=== PATIENT | male | born 1985 | race Caucasian/White ===

== ENCOUNTER 2017-05-07 13:11 | Emergency (ER) | payer OTHER ==
--- NOTE | 2017-05-07 13:16 | EDM.PDOC ---
ED HPI GENERAL MEDICAL PROBLEM - General Chief Complaint: Lower Extremity Injury/Pain Stated Complaint: Left foot pain Time Seen by Provider: 05/07/17 13:16 Source of Information: Reports: Patient, Old Records ([facility] chart/EMR) History Limitations: Reports: No Limitations - History of Present Illness INITIAL COMMENTS - FREE TEXT/NARRATIVE: Patient was brought to the emergency room via transport vehicle from [facility] for evaluation of a Workmen's Compensation injury, which occurred at about 10:30 a.m. this morning. He was able to continue to weight-bear on his left foot with some discomfort and did continue his normal work duties, however progressive 8/ 10 dorsal left foot pain since his injury. The patient had a 300 pound piece of metal slide onto his left foot with no history of foreign body, paresthesias, neurological deficits, or other complaints or injuries. He did take 400 mg of ibuprofen and apply ice packs at 11 AM with only minimal improvement of his symptoms. He has not injured this foot in the past. The patient denies any chest pain/pressure, heart flutter, dizziness, orthostasis, orthopnea, diaphoresis, paresthesias, recent decreased exercise tolerance, or any other anginal-type symptoms. No recent history of abdominal pain, heartburn, nausea, diarrhea, melena, gross hematochezia, or any food intolerance, including fatty foods, etc.. The patient also denies any recent fever, cough, wheezing, dyspnea , etc.. Onset: Today, Sudden Onset Date: 05/07/17 Onset Time: 10:30 Duration: Constant, Getting Worse Location: Reports: Lower Extremity, Left. Denies: Head, Neck, Chest, Abdomen, Back, Upper Extremity, Left, Upper Extremity, Right, Lower Extremity, Right, Radiates to Quality: Reports: Ache, Sharp, Stabbing Severity: Moderate Improves with: Reports: Rest Worsens with: Reports: Movement Context: Reports: Trauma (As above) Associated Symptoms: Denies: Confusion, Chest Pain, Cough, Diaphoresis, Fever/ Chills, Headaches, Loss of Appetite, Malaise, Nausea/Vomiting, Shortness of Breath, Syncope, Weakness Treatments DRAFTER TOPOGRAPHICAL: Reports: Cold Therapy, NSAIDS Left Feet Pain Score (Numeric/FACES): 8 - Related Data Allergies Allergy/AdvReac Type Severity Reaction Status Date / Time No Known Allergies Allergy Verified 08/13/14 16:55 Past Medical History Musculoskeletal History: Reports: Arthritis, Back Pain, Chronic, Fracture, Neck Pain, Chronic, Osteoarthritis, Other (See Below) Other Musculoskeletal History: Proximal phalangeal fracture of digit #5 of the his right hand on 04/29/95 Psychiatric History: Reports: Anxiety, Depression Hematologic History: Reports: None. Denies: Anemia, Blood Transfusion(s) Social & Family History - Tobacco Use Smoking Status *Q: Former Smoker Tobacco Use Within Last Twelve Months: Smokeless Tobacco Years of Tobacco use: 15 Packs/Tins Daily: 0.5 (The patient did chew tobacco about one half can per day between ages 17 and 32 and stopped using tobacco on 03/30/2017) Used Tobacco, but Quit: Yes Month Tobacco Last Used: As above - Living Situation & Occupation Occupation: Employed ([employer]) Review of Systems - Review of Systems Review Of Systems: ROS reveals no pertinent complaints other than HPI. ED EXAM, GENERAL - Physical Exam Exam: See Below Exam Limited By: No Limitations General Appearance: Alert, WD/WN, No Apparent Distress Head: Atraumatic, Normocephalic Neck: Normal Inspection, Supple, Non-Tender, Full Range of Motion. No: Lymphadenopathy (L), Lymphadenopathy (R), Thyromegaly Respiratory/Chest: No Respiratory Distress, Lungs Clear, Normal Breath Sounds, No Accessory Muscle Use, Chest Non-Tender. No: Pleural Rub, Retractions Cardiovascular: Normal Peripheral Pulses, Regular Rate, Rhythm, No Edema, No Gallop, No JVD, No Murmur, No Rub. No: Gallop/S3, Gallop/S4, Friction Rub Peripheral Pulses: 2+: Radial (L), Radial (R), Dorsalis Pedis (L), Dorsalis Pedis (R) GI/Abdominal: Normal Bowel Sounds, Soft, Non-Tender, No Organomegaly, No Distention, No Abnormal Bruit, No Mass, Pelvis Stable. No: Guarding (Male) Exam: Deferred Rectal (Males) Exam: Deferred Back Exam: Normal Inspection, Full Range of Motion. No: CVA Tenderness (L), CVA Tenderness (R), Muscle Spasm Extremities: Normal Range of Motion, No Pedal Edema, Normal Capillary Refill, Leg Pain (Mild to moderate palpation pain over the mid dorsal aspect of the left foot with no ecchymosis, crepitation, deformity, significant swelling, etc. ). No: Joint Swelling, Cynthia's Sign Neurological: Alert, Oriented, CN II-XII Intact, Normal Cognition, No Motor/ Sensory Deficits. No: Normal Gait (Mild discomfort in the left foot with weightbearing and ambulation), Abnormal Gait Psychiatric: Normal Affect, Normal Mood Skin Exam: Warm, Dry, Intact, Normal Color, No Rash. No: Ecchymosis, Wound/ Incision Lymphatic: No Adenopathy Course - Vital Signs Last Recorded V/S: Last Vital Signs Temp 36.8 C 05/07/17 13:59 Pulse 85 05/07/17 13:59 Resp 16 05/07/17 13:59 BP 118/61 05/07/17 13:59 Pulse Ox 99 05/07/17 13:59 Vital Signs - 24 hr 05/07/17 13:59 Temperature [ 36.8 C Temporal] Pulse, 85 Peripheral [ Right Pulse Oximetry] Respiratory 16 Rate Blood Pressure 118/61 [Right Upper Arm] O2 Sat by Pulse 99 Oximetry - Orders/Labs/Meds Orders: Active Orders 24 hr Category Date Time Status Foot Comp Min 3V Lt [CR] Stat Exams 05/07/17 13:17 Taken Obtain Past Medical Record [OM.PC] Routine Oth 05/07/17 13:17 Active Labs: None Meds: None - Radiology Interpretation Free Text/Narrative:: X-rays of the foot, complete, shows no evidence of fracture, dislocation, foreign body, etc. Departure - Departure Time of Disposition: 14:43 Disposition: Home, Self-Care 01 Clinical Impression: Mixed anxiety depressive disorder Contusion Qualifiers: Encounter type: initial encounter Contusion area: foot Laterality: left Qualified Code(s): S90.32XA - Contusion of left foot, initial encounter Osteoarthritis Qualifiers: Osteoarthritis location: multiple joints Osteoarthritis type: primary Qualified Code(s): M15.0 - Primary generalized (osteo)arthritis - Discharge Information Instructions: Crutch Use, Adult, [id number], Contusion, [id number] Referrals: Nelson Donato NP [Primary Care Provider] - Forms: ED Department Discharge Additional Instructions: 1. Follow-up with your regular provider in one week for reevaluation and reassessment of your previous work restrictions. Consider possible repeat of left foot x-rays at that time depending on your symptoms 2. Work excuse- See Form 3. Weight bearing on the left foot as tolerated with Ayo wrap and crutches to be used majority of the time as discussed 4. BenGay or equivalent, heating pad, and/or ice packs as directed. 5. Congratulations about stopping smoking 6. Call us later this afternoon with your current medical therapy including antidepressant medication, etc. 7. Tylenol 650 mg by mouth every 4 hours and/or OTC ibuprofen 2-3 tabs by mouth every 6 hours with food as directed./needed. - Problem List & Annotations (1) Contusion SNOMED Code(s): 703783208 Code(s): T14.8XXA - OTHER INJURY OF UNSPECIFIED BODY REGION, INITIAL ENCOUNTER Status: Acute Priority: High Current Visit: Yes Onset Date: Annotation/Comment:: Moderate contusion of the left foot as above. Workmen's Compensation and [employer] work excuse forms were completed. Activity restrictions discussed. Note that the patient did leave this facility refusing recommended crutches, however the nurse did subsequently call the patient back telling him that he does need to use crutches secondary to his work excuse, activity restrictions, etc. at discharge. He will come back later today to brain picker these crutches. Patient also refused to allow the nurse to put an Ayo wrap on his foot, however he did take this with him at discharge. Qualifiers: Encounter type: initial encounter Contusion area: foot Laterality: left Qualified Code(s): S90.32XA - Contusion of left foot, initial encounter (2) Osteoarthritis SNOMED Code(s): 993911152 Code(s): M19.90 - UNSPECIFIED OSTEOARTHRITIS, UNSPECIFIED SITE Status: Chronic Priority: Medium Current Visit: Yes Annotation/Comment:: Otherwise stable by history Qualifiers: Osteoarthritis location: multiple joints Osteoarthritis type: primary Qualified Code(s): M15.0 - Primary generalized (osteo)arthritis (3) Mixed anxiety depressive disorder SNOMED Code(s): 353343947 Code(s): F41.8 - OTHER SPECIFIED ANXIETY DISORDERS Status: Chronic Priority: Medium Current Visit: Yes Annotation/Comment:: Stable by history with patient not knowing his current medical therapy. He will call us back later with his current medications - Problem List Review Problem List Initiated/Reviewed/Updated: Yes - My Orders Last 24 Hours: My Active Orders 05/07/17 13:17 Foot Comp Min 3V Lt [CR] Stat Obtain Past Medical Record [OM.PC] Routine - Assessment/Plan Last 24 Hours: My Active Orders 05/07/17 13:17 Foot Comp Min 3V Lt [CR] Stat Obtain Past Medical Record [OM.PC] Routine Assessment:: As above Plan: As above. Extensive precautions were given to the patient, who is in agreement with the treatment plan. See Patient Instructions for further treatment and plan.
== END 2017-05-07 14:43 | disposition home or self-care (01) ==
LOC: LL.ED 13:11
DX: S90.32XA Contusion of left foot, initial encounter (principal); M15.0 Primary generalized (osteo)arthritis; F41.3 Other mixed anxiety disorders; W22.8XXA Striking against or struck by other objects, initial encounter; Y99.0 Civilian activity done for income or pay; Z87.891 Personal history of nicotine dependence
CPT/HCPCS: 73630-LT; 99284